=== PATIENT | male | born 1955 | race Caucasian/White ===

== ENCOUNTER → 2025-06-29 | Outpatient (CLI) | payer MEDICARE, SELFPAY ==
[~2025-06-29] MED LIST: ALLO300T2 PO; AMLO1TAB25 PO; ATEN25TA PO; ATOR40TA75 PO; FARX1TAB3 PO; LOSA50TA28 PO; TIRZ2.5P SQ
== END ==
LOC: M ONCR 08:03
PROVIDERS: ATTEND General Practice
DX: C61 Malignant neoplasm of prostate (principal); R97.20 Elevated prostate specific antigen [PSA]; R35.1 Nocturia; Z80.1 Family history of malignant neoplasm of trachea, bronchus and lung; Z87.891 Personal history of nicotine dependence; Z72.89 Other problems related to lifestyle; Z79.84 Long term (current) use of oral hypoglycemic drugs; Z79.899 Other long term (current) drug therapy; Z79.85 Long-term (current) use of injectable non-insulin antidiabetic drugs

== ENCOUNTER → 2025-07-27 | Outpatient (CLI) | payer MEDICARE ==
[~2025-07-27] VITALS: Ht 167.6 cm; Wt 69.7 kg
[~2025-07-27] MED LIST changes: +CIPR750T2 PO; +LORA1TAB23 PO
[2025-07-27 14:01] VITALS: BP 138/82; TEMP 97.2; O2SAT 98
[2025-07-27] MEDS: LIDOCAINE VISCOUS 2% SOLN 15 ML UDC XX ONE (14:11)
[2025-07-27] MEDS: LIDOCAINE 2% MDV 20 ML VIAL XX ONE (14:20)
[2025-07-27 14:48] VITALS: BP 150/86; TEMP 97.7; O2SAT 97
== END ==
LOC: M ONCR 13:35
PROVIDERS: ATTEND General Practice
DX: C61 Malignant neoplasm of prostate (principal)
CPT/HCPCS: 55874; 55876; A4648; C1889

== ENCOUNTER 2025-08-07 10:30 | Outpatient (RCR) | payer MEDICARE | END 2025-08-18 | LOC: M ONCR 10:30 | PROVIDERS: ATTEND General Practice | DX: Z51.0 Encounter for antineoplastic radiation therapy (principal); C61 Malignant neoplasm of prostate ==

== ENCOUNTER → 2025-08-21 | Outpatient (CLI) | payer MEDICARE ==
[2025-08-21] MEDS: LEUPROLIDE 45 MG SYRINGE KIT IM SCH (10:00)
== END ==
LOC: M ONCR 09:07
PROVIDERS: ATTEND General Practice
DX: Z51.11 Encounter for antineoplastic chemotherapy (principal); C61 Malignant neoplasm of prostate; Z72.89 Other problems related to lifestyle; F17.200 Nicotine dependence, unspecified, uncomplicated; Z79.84 Long term (current) use of oral hypoglycemic drugs; Z79.85 Long-term (current) use of injectable non-insulin antidiabetic drugs; Z79.899 Other long term (current) drug therapy
CPT/HCPCS: 96402; J9217

== ENCOUNTER 2025-08-25 09:37 | Outpatient (RCR) | payer MEDICARE | END 2025-09-17 | LOC: M ONCR 09:37 | PROVIDERS: ATTEND General Practice | DX: Z51.0 Encounter for antineoplastic radiation therapy (principal); C61 Malignant neoplasm of prostate ==